=== PATIENT | male | born 1970 | race Caucasian/White ===

== ENCOUNTER → 2017-04-26 | Outpatient (CLI) | payer OTHER ==
[~2017-04-26] MED LIST: ALBUTEROL17 GM INH; ATIVAN0.5 MG PO; IBUPROFEN800 MG PO; INDERAL20 MG PO; LISINOPRIL10 MG PO; METHADONE HCL10 MG; METHADONE HCL10 MG PO; MULTI VITAMIN1 EACH PO; OXYCODONE-APAP1 T11 PO; PREDNISONE; PREDNISONE10 MG PO; PRINIVIL10 MG; PROPANOL; PROPRANOLOL HCL20 MG PO; PROTONIX PO; PROZAC; TESTOSTERO200 MG/1 M; ZOFRAN ODT4 MG PO
--- NOTE | ~2017-04-26 | MR113 ---
[facility] A Service of [facility] RADIOLOGY TEXT RESULTS PATIENT: STEFF WHITTEN [facility] [birth year] UNIT #: [id number] AGE: [address]: Darío Green DO SEX: M ORDER DR: [id number] [facility] [address] [place], [place] [address] [id number] O MR#: [id number] Acc #: [id number] NAME: STEFF WHITTEN : 1970 SEX: M STUDY DATE/TIME: 04/26/2017 14:11 UNIT: [facility] ROOM: STUDY DESCRIPTION: MR Lumbar Wo Contrast Attending Physician: Darío Green Referring Physician: Darío Green Ordering Physician: Darío Green Primary Care Physician: Aelx Castillo M.D. MRI CENTER REPORT This report is preliminary unless electronic signature is present. EXAM Lumbar spine MRI, no contrast, 04/26/[address] abdomen and pelvis, 06/08/15 HISTORY Routine unenhanced lumbar spine MRI. CLINICAL HISTORY Recent fall about 2 weeks ago with subsequent low back pain radiating to the right leg. FINDINGS There is a grade 1, L5-S1 anterolisthesis with a unilateral right L5-pars defect. There is a mild dextroscoliosis also seen on the prior study. There are degenerative marrow signal changes around the L5-S1 disk, but there is no marrow infiltration, replacement or acute marrow edema at any level. The distal cord and conus are normal in position and appearance. The paraspinous soft tissues are normal. At L1-L2, the disk, canal and foramina are normal. At L2-L3, the disk, canal and foramina are normal. At L3-L4, there is a slight disk bulge and facet arthropathy. There is mild canal narrowing, and borderline right and mild left foraminal stenosis. AT L4-L5, there is mild discogenic change, but no canal stenosis, but there is borderline to mild left and right foraminal stenosis. [facility] A Service of [facility] RADIOLOGY TEXT RESULTS PATIENT: STEFF WHITTEN [facility] : 66 UNIT #: [id number] AGE: [address]: Daíro Green DO SEX: M ORDER DR: At L5-S1, there is anterolisthesis, pseudo disk bulge facet arthropathy and borderline to mild canal stenosis, and moderate or moderate to severe right and mild to moderate or moderate left foraminal stenosis. IMPRESSION 1. Grade 1, L5-S1 anterolisthesis with unilateral right pars defect. No change in alignment, including mild scoliosis, since CT abdomen and pelvis of 06/08/15. 2. Areas of degenerative canal and foraminal narrowing described in detail in the body of the report, see above. No acute-appearing abnormality at any level. Dictated by... Gilberto Ochoa M.D. THIS IS AN ELECTRONICALLY VERIFIED REPORT Gilberto Ochoa M.D. at 04/27/2017 5:29 PM DONNA/moe TD: 04/27/2017 13:54 JOB #: [id number] MRI [facility]ENTER REPORT Page 1 of 1 COPY
== END | disposition home or self-care (01) ==
LOC: CMRI 13:49
DX: M51.16 Intervertebral disc disorders with radiculopathy, lumbar region (principal); M43.16 Spondylolisthesis, lumbar region; M41.9 Scoliosis, unspecified; M43.17 Spondylolisthesis, lumbosacral region
CPT/HCPCS: 72148